=== PATIENT | female | born 1995 | race Caucasian/White ===

== ENCOUNTER 2018-11-08 19:53 | Inpatient (IN) | payer BC ==
[~2018-11-08] VITALS: Ht 165.1 cm; Wt 117.1 kg
[2018-11-08 20:02] VITALS: Ht 165.1 cm; Wt 117.1 kg
--- NOTE | 2018-11-08 20:28 | NUR ---
PT CAME TO ED FOR TAKING HALF BOTTLE OF DEPAKOTE. PT STS SHE HAS HX OF BIPOLAR. PT STS SHE HAS BEEN ADMITTED TO [facility] SEVERAL TIMES. PT STS SHE STARTED FEELING SAD 2 WEEKS AGO. PT STS SHE HAS A HX OF CUTTING HERSELF. PT STS SHE IS ABLE TO TALK TO HER MOTHER BUT SOMETIMES SHE KEEPS THINGS BOTTLED UP. PT DENIES SI/HI AT THIS TIME. PT STS SHE DOES NOT HAVE ACTIVE PLAN. MADE VERBAL AGREEMENT THAT PT WILL NOT TRY TO HURT HERSELF WHILE HERE. REQUESTED THAT PT REMOVE ALL PERSONAL BELONGS AND CLOTHES. PT VERBALIZED UNDERSTANDING. PT BELONGINGS PLACED IN RADIO ROOM. MOTHER AT BEDSIDE. PT IS CURRENTLY CRYING. PT MEDICATED BY ANA MITCHELL SEE EMAR FOR DETAILS. PT IN SITE OF NURSES STATION. WILL CONTINUE TO MONITOR.
--- NOTE | 2018-11-08 20:33 | NUR ---
EMT AT BEDSIDE FOR EKG
--- NOTE | 2018-11-08 20:46 | NUR ---
CALLED POISON CONTROL. STS THAT N/V IS COMMON BUT THERE ARE IS A PROBLEM W/SEIZURES AND ALOC. REQUESTS AMMONA, TYLENOL LEVEL, LIVER LEVELS AND MEDICATION LEVEL. REQUEST TO REPEAT LEVELS IN THE NEXT 4 HOURS. ALSO MENTIONED THAT EKG CHANGES CAN HAPPEN. SPOKE W/MAHESH.
[2018-11-08 20:50] LABS: BASOPHIL % 0.9 % (0-2); PLATELET COUNT 351 x10^3mcL (130-400); RED CELL DISTRIBUTION WIDTH 12.8 % (11.5-14.5)
--- NOTE | 2018-11-08 20:57 | NUR ---
PT STS AT THIS TIME SHE IS UNABLE TO URINATE
[2018-11-08 21:08] LABS: CALCIUM 8.8 mg/dL (8.5-10.1); CARBON DIOXIDE 23.8 mmol/L (21-32); CHLORIDE SERUM 108 mmol/L (98-107); CREATININE SERUM 0.8 mg/dL (0.6-1.0); GFR1 > 60 mL/min; GLUCOSE SERUM 101 mg/dL (74-106); SODIUM SERUM 143 mmol/L (136-145)
[2018-11-08 21:12] LABS: ALBUMIN 3.7 g/dL (3.4-5.0); ALKALINE PHOSPHATASE 72 U/L (46-116); ALT/SGPT 18 U/L (14-59); AST/SGOT 14 U/L (15-37); BILIRUBIN TOTAL 0.32 mg/dL (0.20-1.00)
--- NOTE | 2018-11-08 21:34 | NUR ---
PT MOVED FROM ER BED 1 TO BED 7. REPORT RECEIVED FROM DAPHNIE PEREZ TO ASSUME PT CARE. PT RESTING IN A POSITION OF COMFORT, AOX4, RESP EVEN AND UNLABORED, NO ACUTE DISTRESS NOTED. PT ON FULL CM IN VIEW OF NURSE'S STATION.
[2018-11-08 22:31] LABS: microscopic required? NO
[2018-11-08 22:48] LABS: UA SPECIFIC GRAVITY >=1.030 (1.005-1.035)
[2018-11-08 22:49] LABS: urine erythrocyte NEGATIVE (NEGATIVE)
[2018-11-08 22:52] LABS: AMPHETAMINE QUAL UR NONE DETECTED (See below)
--- NOTE | 2018-11-08 23:58 | NUR ---
GAVE REPORT TO ADNREW WITH POISON CONTROL. PER ADNREW REPEAT VALPORIC ACID LEVELS EVERY 3-4 HRS UNTIL A DECREASED IN PTS VALPORIC ACID IS NOTED. MD CHAUDHARY MADE AWARE.
--- NOTE | 2018-11-09 00:47 | NUR ---
PT RESTING IN A POSITION OF COMFORT AT THIS TIME. AOX4, RESP EVEN AND UNLABORED, NO ACUTE DISTRESS NOTED. PT REMAINS ON MONITOR IN VIEW OF STATION.
--- NOTE | 2018-11-09 02:48 | NUR ---
PT RESTING COMFORTABLY AT THIS TIME. WAKES EASILY TO VERBAL AND TACTILE STIMULI. ANSWERS ALL QUESTIONS APPROPRIATELY AND REMAINS ON FULL CM.
--- NOTE | 2018-11-09 04:01 | NUR ---
PT RESTING IN A POSITION OF COMFORT WITH EYES CLOSED, RESP EVEN AND UNLABORED, NO ACUTE DISTRESS NOTED.
--- NOTE | 2018-11-09 04:42 | NUR ---
SPOKE WITH SUKHI FROM POISION CONTROL REGARDING "GASTRIC LAVAGE" ORDER PLACED BY DR LUDWIG. PER CONTSTATINE, HIS RECOMMENDATION IS WHOLE BOWEL IRRIGATION WITH GO LYTELY 1-2L PER HR UNTIL VALPROIC ACID LEVEL DROPS OR UNTIL STOOL IS CLEAR IRRIGATION SHOULD BE PERFORMED THROUGH AN NG TUBE. DR LUDWIG PAGED TO DISCUSS ORDER.
--- NOTE | 2018-11-09 04:57 | NUR ---
PAGED DR LUDWIG FOR ORDER CLARIFICATION.
--- NOTE | 2018-11-09 04:58 | NUR ---
DR LUDWIG TO CHANGE ORDER TO MOVIPREP FOR WHOLE BOWEL IRRIGATION.
[2018-11-09 05:23] LABS: BASOPHIL % 1.3 % (0-2); PLATELET COUNT 327 x10^3mcL (130-400); RED CELL DISTRIBUTION WIDTH 12.9 % (11.5-14.5)
[2018-11-09 05:44] LABS: CALCIUM 7.9 mg/dL (8.5-10.1); CARBON DIOXIDE 24.8 mmol/L (21-32); CHLORIDE SERUM 110 mmol/L (98-107); CREATININE SERUM 0.8 mg/dL (0.6-1.0); GFR1 > 60 mL/min; GLUCOSE SERUM 92 mg/dL (74-106); SODIUM SERUM 145 mmol/L (136-145)
--- NOTE | 2018-11-09 06:00 | NUR ---
NG TUBE PLACED BY MYSELF AT THIS TIME, PT TOLERATED WELL HOWEVER, MILD NOSE BLEEDING NOTED.
[2018-11-09 06:02] LABS: MAGNESIUM 1.7 mg/dL (1.8-2.4); PHOSPHOROUS 4.4 mg/dL (2.5-4.9)
--- NOTE | 2018-11-09 06:26 | NUR ---
NG TUBE PLACEMENT VERIFIED BY ER MD ESQUIVEL. MOVIPREP INFUSION INITATED AT A RATE OF 400ML/HR. EDUCATED PT ON MEDICATION ADMINISTRATION. PT VERBALIZED UNDERSTANDING.
--- NOTE | 2018-11-09 06:33 | NUR ---
PT STATES THAT SHE IS FEELING SUICIDAL AGAIN THIS MORNING, PT STATES THAT SHE WILL ATTEMPT SUICIDE BY OVERDOSING AGAIN. PT IN VIEW OF NURSE'S STATION FOR SAFETY.
--- NOTE | 2018-11-09 06:36 | NUR ---
MOVIPREP INFUSION HELD FOR EPISODE OF VOMITING.
--- NOTE | 2018-11-09 06:39 | NUR ---
PT MEDICATED WITH PRN ZOFRAN FOR VOMITING. SEE EMAR FOR RECORD.
--- NOTE | 2018-11-09 06:44 | NUR ---
MOVIPREP REINITIATED AT THIS TIME. PT RESTING COMFORTABLY WATCHING TV AT THIS TIME. AOX4, RESP EVEN AND UNLABORED, NO ACUTE DISTRESS NOTED.
--- NOTE | 2018-11-09 07:30 | NUR ---
AWAKE ALERT OREINTED. NO COMPLAINTS, SKIN WARM AND DRY TO TOUCH ,RESP. EASY BREATH SOUNDS CLEAR, ABDOMEN OBESE SOFT ACTIVE BOWEL SOUNDS,MOVIPREP IN PROGRESS AT 400 CC/HR VIA NGTUBE,COOPERATIVE,STATES STILL HAVING SUICIDAL IDEATION,IV IN PROGRESS AT 125CC/HR,CONTINUOUS ABSORPTION PROCESS OPERATOR I SR NO ECTOPY NOTED WAITING ADMISSION, WILL CONTINUE TO MONITOR
--- NOTE | 2018-11-09 08:00 | NUR ---
NGTUBE MOVIPREP CHANGED TO 1000CC/HR.HAD LOOSE BLACKISH CHARCHOOL COLORED BOWEL MOVEMENT
--- NOTE | 2018-11-09 10:32 | NUR ---
HAD 3 WATERY LARGE BOWEL MOVEMENTS, PER MATTIE FROM POISON CONTROL IF VALPROIC LEVEL BELOW 114 STOP THE ELECTROLYTES LEVAGE AND SHE IS CLEAR,NO MORE VALPROIC ACID CHECKING
--- NOTE | 2018-11-09 11:17 | NUR ---
RECEIVED APTEINT FROM ER. ALERT/ORIENTED X4; CLEAR SPEECH. TELE#29 APPLIED, NSR; HR = 67; NO RESP DISTRESS ON RA. O2 SAT 99% ON RA. BRAETHING SOUND CLEAR RHYS. PATIENT STATED SHE TOOK DEPAKOTE 500MG X 30 TABS AND XANAX 10 TAB AMD "METH" WITH 1/2 L VODKA. NG TUBE INSERTED IN ER. GASTRIC LAVAGE GIVEN IN ER. PATIENT HAD YELLOW WATERY BM X4 IN ER. NGT VIA L NARES IN PLACE. DENIED PAIN. IVF OF NS 100CC/HR CONTIUE. DENIED PAIN. VOID VIA BRP; GAIT STEADY. 3 KNIFE CUTTING SCAR TO LT FOREARM FOR HX OF SUICIDAL ATTEMPTION. NO OPENED WOUND SEEN. FATHER AT BED SIDE NOW. 1 TO 1 SITTER PER ORDER.
[2018-11-09 11:19] VITALS: BP 145/86
--- NOTE | 2018-11-09 13:00 | NUR ---
REPORTED TO DR. GRANT WITH PATIENT'S VALPORIC ACID LEVEL 97.4; WITH NORMAL TREATMENT RANGE. ORDER OF D/C NGT CARRIED OUT. PATIENT CALM NOW. SEIZURE PRECAUTION IN PLACE.
[2018-11-09 13:33] VITALS: BP 150/91
--- NOTE | 2018-11-09 15:56 | NUR ---
MAGNESSIUM LEVEL 1.7; MAG RIDER 2GM IV GIVEN. PATIENT WAS SLEEPING NOW.
--- NOTE | 2018-11-09 16:45 | NUR ---
RECEIVED PHONE CALL FROM [facility]. TALKED TO [facility]. GAVE V/S, VALPROIC ACID LEVEL, PATIENT HAD YELLOW WATERY BM X6, NGT D/C'D, STARTED REGULAR DIET AND SITTER AT BED SIDE. [facility], CASE CLOSED NOW.
[2018-11-09 17:41] VITALS: BP 137/75
--- NOTE | 2018-11-09 18:58 | NUR ---
ON REGULAR DIET. POOR APPETITE. TOLERATED JUICE. NO N/V. DENIED PAIN. HAD WATER BM AND VOID VIA BRP. IVF OF NS 100CC/HR. SITTER AT BED SIDE. ENDORSED CARE TO [facility] NURSE.
--- NOTE | 2018-11-09 19:20 | NUR ---
RECEIVED PT IN BED ASLEEP BUT EASILY AROUSABLE AND ORIENTED X4. NO C/O HEADACHE AND DIZZINESS. NO SOB NOTED ON ROOM AIR. PT W/ NO C/O HALLUCINATIONS OR DELUSION. NO SUICIDAL IDEATION AT THIS TIME. SITTER AT BEDSIDE. W/ IVF NS AT 100 CC/HR VIA LTAC. CALL LIGHT W/IN REACH.
[2018-11-09 20:53] VITALS: BP 113/62
--- NOTE | 2018-11-10 02:25 | NUR ---
PT ASLEEP BUT EASILY AROUSABLE. NO C/O DISCOMFORT. SITTER AT BEDSIDE.
--- NOTE | 2018-11-10 05:15 | NUR ---
PT SLEPT THROUGH THE NIGHT. SHE WAS CALM AND COOPERATIVE W/ CARE. SHE DID NOT VERBALIZE SUICIDAL IDEATION. NO HALLUCINATIONS OR DELUSIONS. IVF NS INFUSING WELL AT 100 CC/HR . ALL NEEDS ATTENDED TO. SITTER REMAINS AT BEDSIDE.
[2018-11-10 06:18] VITALS: BP 120/70
[2018-11-10 06:42] LABS: ALKALINE PHOSPHATASE 63 U/L (46-116); ALT/SGPT 11 U/L (14-59); AST/SGOT 11 U/L (15-37); CALCIUM 7.6 mg/dL (8.5-10.1); CARBON DIOXIDE 22.7 mmol/L (21-32); CHLORIDE SERUM 109 mmol/L (98-107); CREATININE SERUM 0.6 mg/dL (0.6-1.0); GFR1 > 60 mL/min; GLUCOSE SERUM 87 mg/dL (74-106); MAGNESIUM 2.2 mg/dL (1.8-2.4); POTASSIUM SERUM 3.5 mmol/L (3.5-5.1); SODIUM SERUM 142 mmol/L (136-145); TOTAL PROTEIN, SERUM 6.2 g/dL (6.4-8.2)
[2018-11-10 06:57] LABS: ALBUMIN 2.8 g/dL (3.4-5.0)
--- NOTE | 2018-11-10 07:35 | NUR ---
RECEIVED PATIENT RESTING IN BED, NO ACUTE DISTRESS NOTED. PATIENT A/O X4, SEIZURE PRECAUTIONS IN PLACE. PATIENT C/O PREVIOUS STOOL BEING LOOSE. NO WEAKNESS NOTED, PATIENT AMBULATORY. SKIN INTACT. DENIES PAIN. NS IV INFUSING TO LAC AT 100ML/HR, IV SITE CDI, NO S/S OF INFILTRATION. CALL LIGHT WITHIN REACH, BED IN LOW POSITION, WILL CONTINUE TO MONITOR.
[2018-11-10 10:04] VITALS: BP 119/70
--- NOTE | 2018-11-10 10:15 | NUR ---
PATIENT WAS C/O HEADACHE, MEDICATED PATIENT WITH TYLENOL (SEE EMAR). WILL CONTINUE TO MONITOR PATIENT. CALL LIGHT WITHIN REACH, BED IN LOW POSITION. SITTER AT BEDSIDE FOR SEFTY PRECAUTION.
[2018-11-10 13:00] VITALS: BP 131/88
--- NOTE | 2018-11-10 15:00 | NUR ---
PATIENT WAS C/O OF A HEADACHE, MEDICATED PATIENT WITH TYLENOL PER PROTOCOL (SEE EMAR). REDUCED LIGHT FOR COMFORT. FAMILY AT BEDSIDE. CALL LIGHT WITHIN REACH, WILL CONTINUE TO MONITOR.
[2018-11-10 17:26] VITALS: BP 117/62
--- NOTE | 2018-11-10 17:30 | NUR ---
PATIENT RESTING IN BED, NO ACUTE DISTRESS NOTED. PATIENT DENIES PAIN. NO ACUTE CHANGES NOTED THROUGH OUT SHIFT, PATIENT STABLE. TELE MONITOR IN PLACE. CALL LIGHT WITHIN REACH, WILL CONTINUE TO MONITOR.
--- NOTE | 2018-11-10 19:15 | NUR ---
RECEIVED PT IN BED AWAKE AND TALKING TO PARENTS AT BEDSIDE. PT APPEARS TEARFUL. ON TELE #29 AND SHOWS SB. SHE HAS NO C/O PAIN OR DISCOMFORT AT THIS TIME. W/ IVF NS AT 100 CC/HR VIA LTAC. CALL LIGHT W/IN REACH. SITTER AT BEDSIDE.
[2018-11-10 20:00] VITALS: BP 150/85
--- NOTE | 2018-11-10 20:30 | NUR ---
PT SEEN BY DR. COWAN.
--- NOTE | 2018-11-10 22:35 | NUR ---
PT CALM AND WATCHING TV AT THIS TIME.
--- NOTE | 2018-11-11 05:07 | NUR ---
PT IS ON HER LT SIDE AND APPEARS TO BE SLEEPING COMFORTABLY. BREATHING IS EVEN AND UNLABORED. PT IS WATCHED CLOSELY PT STILL HAS THOUGHTS OF HURTING HERSELF. PT REMAINED CALM AND COOPERATIVE W/ CARE. W/ IVF NS INFUSING WELL VIA LTAC. ALL NEEDS ATTENDED TO. SITTER AT BEDSIDE.
[2018-11-11 05:59] VITALS: BP 129/82
--- NOTE | 2018-11-11 08:04 | NUR ---
RECEIVED PATIENT FROM ANA LLOYD. PATIENT LAYING IN BED, STATES SHE STILL HAS THOUGHTS ABOUT HURTING HERSELF. DENIES WANTING TO HARM OTHERS. WILL CONTINUE TO WATCH PATIENT, PATIENT HAS SITTER AT BEDSIDE. CALL LIGHT IN REACH AT THIS TIME.
--- NOTE | 2018-11-11 09:12 | NUR ---
[facility] received packet via fax. Will begin looking for placement. Will contact with any updates.
--- NOTE | 2018-11-11 09:22 | NUR ---
Contacted the following facilities regarding placement: [facility]: states they may have a bed for pt. Packet faxed for review. [facility]: State they have multiple openings, will review packet. Packet faxed. Will continue to contact facilities. Will contact with placment updates.
--- NOTE | 2018-11-11 10:41 | NUR ---
NOTIFIED BY DINAH KERN THAT PATIENT CAN BE ACCEPTED FOR PLACEMENT. PATIENT AND FATHER EXPRESSED THAT THEY WOULD LIKE PATIENT TO BE PLACED AT [facility] AND THAT FATHER WOULD LIKE TO SELF TRANSPORT WO AMBULANCE. NOTIFIED DR STEELE ABOUT CONCERNS AND PLACEMENT. ALSO NOTIFIED KIM DELA CRUZ ABOUT PATIENT CONCERNS. KIM DELA CRUZ ARRIVED TO FLOOR TO SPEAK WITH FATHER, DURING THIS CONVERSATION, [facility] DANIEL CALLED AND ALSO ABLE TO ACCEPT PATIENT. SW, PATIENT, FATHER, AND DR BAGLEY ALL MADE AWARE. WILL AWAIT ARRANGEMENTS WITH KIM AND INSIDE SALES ACCOUNT REPRESENTATIVE FOR FURTHER DETAILS. CALL LIGHT IN REACH, SITTER AT BEDSIDE.
[2018-11-11 11:11] VITALS: BP 129/82
--- NOTE | 2018-11-11 11:25 | NUR ---
PATIENT READY FOR 1130 PICKUP TO TRANSFER TO [facility]. REPORT ALREADY GIVEN TO DANIEL. SIGNATURES OBTAINED FOR TRANSFER AND TRANSFER PACKET. IV ACCESS REMOVED AND INTACT, MANAGER GARAGE REMOVED AND RETURNED TO [facility]. NOW AWAITING TRANSPORT VIA [facility]. CALL LIGHT IN REACH, SITTER AT BEDSIDE.
--- NOTE | 2018-11-11 12:17 | NUR ---
[facility] IN TO TRANSPORT PATIENT. PATIENT OFF FLOOR VIA [facility] WITH BELONGINGS. TRANSFER PACKET GIVEN TO [facility].
== END 2018-11-11 12:05 | DRG 918 ==
LOC: ED 19:53 → DU 11-09 01:45 → MU 11-09 01:45 → DU 11-09 11:09
PROVIDERS: Specialist; ADMIT Internal Medicine
DX: T42.6X2A Poisoning by other antiepileptic and sedative-hypnotic drugs, intentional self-harm, initial encounter (principal); F31.9 Bipolar disorder, unspecified; F41.9 Anxiety disorder, unspecified; F17.210 Nicotine dependence, cigarettes, uncomplicated; Y92.89 Other specified places as the place of occurrence of the external cause; Z72.89 Other problems related to lifestyle; Z79.899 Other long term (current) drug therapy
CPT/HCPCS: G0378; G0480; J2405; J3475; J7030; Q0092

== ENCOUNTER 2018-11-13 22:31 | Emergency (ER) | payer BC ==
[~2018-11-13] VITALS: Ht 165.1 cm; Wt 120.2 kg
[2018-11-13 23:08] VITALS: Ht 165.1 cm; Wt 120.2 kg
[2018-11-13 23:19] LABS: BASOPHIL % 0.8 % (0-2); PLATELET COUNT 340 x10^3mcL (130-400); RED CELL DISTRIBUTION WIDTH 12.7 % (11.5-14.5)
[2018-11-13 23:36] LABS: CALCIUM 8.4 mg/dL (8.5-10.1); CARBON DIOXIDE 27.5 mmol/L (21-32); CHLORIDE SERUM 101 mmol/L (98-107); CREATININE SERUM 0.9 mg/dL (0.6-1.0); GFR1 > 60 mL/min; GLUCOSE SERUM 114 mg/dL (74-106); POTASSIUM SERUM 3.3 mmol/L (3.5-5.1); SODIUM SERUM 139 mmol/L (136-145)
[2018-11-14 00:20] LABS: ALBUMIN 3.8 g/dL (3.4-5.0); ALT/SGPT 30 U/L (14-59); AST/SGOT 19 U/L (15-37); BILIRUBIN TOTAL 0.41 mg/dL (0.20-1.00); TOTAL PROTEIN, SERUM 7.5 g/dL (6.4-8.2)
[2018-11-14 00:21] LABS: ALKALINE PHOSPHATASE 68 U/L (46-116); AMYLASE 23 U/L (25-115); CHOLESTEROL 161 mg/dL (<200); HDL CHOLESTEROL 37 mg/dL (40-60); LIPASE 131 IU/L (73-393); T4(THYROXINE) 10.6 ug/dL (4.7-13.3)
[2018-11-14 01:10] LABS: UA SPECIFIC GRAVITY <=1.005 (1.005-1.035); microscopic required? YES; urine erythrocyte TRACE (NEGATIVE)
[2018-11-14 01:47] LABS: AMPHETAMINE QUAL UR NONE DETECTED (See below)
[2018-11-14 03:56] VITALS: BP 103/66
== END 2018-11-14 03:58 | disposition home or self-care (01) ==
LOC: ED 22:31
PROVIDERS: Emergency Medicine
DX: R07.89 Other chest pain (principal); R00.2 Palpitations; E87.6 Hypokalemia; F31.9 Bipolar disorder, unspecified; F17.210 Nicotine dependence, cigarettes, uncomplicated; F12.10 Cannabis abuse, uncomplicated; E66.9 Obesity, unspecified; Z68.41 Body mass index [BMI] 40.0-44.9, adult
CPT/HCPCS: 36415; 83880; 85378

== ENCOUNTER 2019-12-22 17:09 | Emergency (ER) | payer OTHER ==
[~2019-12-22] VITALS: Ht 165.1 cm; Wt 108.9 kg
[2019-12-22 17:16] VITALS: Ht 165.1 cm; Wt 108.9 kg
[2019-12-22 18:20] LABS: PLATELET COUNT 428 x10^3mcL (130-400); RED CELL DISTRIBUTION WIDTH 13.1 % (11.5-14.5)
[2019-12-22 18:21] LABS: CALCIUM 8.8 mg/dL (8.5-10.1); CHLORIDE SERUM 105 mmol/L (98-107); CREATININE SERUM 0.7 mg/dL (0.6-1.0); GFR1 > 60 mL/min; GLUCOSE SERUM 108 mg/dL (74-106); POTASSIUM SERUM 3.2 mmol/L (3.5-5.1); SODIUM SERUM 141 mmol/L (136-145)
[2019-12-22 18:25] LABS: ALBUMIN 4.1 g/dL (3.4-5.0); ALKALINE PHOSPHATASE 76 U/L (46-116); ALT/SGPT 28 U/L (14-59); AST/SGOT 17 U/L (15-37); BILIRUBIN TOTAL 0.53 mg/dL (0.20-1.00); LIPASE 105 IU/L (73-393); TOTAL PROTEIN, SERUM 7.6 g/dL (6.4-8.2)
[2019-12-22 20:00] VITALS: BP 150/92
== END 2019-12-22 20:00 | disposition home or self-care (01) ==
LOC: ED 17:09
PROVIDERS: Emergency Medicine
DX: R10.12 Left upper quadrant pain (principal); F31.9 Bipolar disorder, unspecified

== ENCOUNTER 2019-12-25 07:54 | Emergency (ER) | payer BC, OTHER ==
[2019-12-25 08:02] VITALS: BP 146/83
== END 2019-12-25 09:33 | disposition home or self-care (01) ==
LOC: ED 07:54
DX: H00.034 Abscess of left upper eyelid (principal); K29.70 Gastritis, unspecified, without bleeding
CPT/HCPCS: J0696; J2405; J7060

== ENCOUNTER 2019-12-31 12:45 | Emergency (ER) | payer BC, OTHER ==
[~2019-12-31] VITALS: Ht 165.1 cm; Wt 108.9 kg
[2019-12-31 13:19] VITALS: Ht 165.1 cm; Wt 108.9 kg
[2019-12-31 14:23] LABS: BASOPHIL % 0.5 % (0-2); PLATELET COUNT 382 x10^3mcL (130-400); RED CELL DISTRIBUTION WIDTH 12.7 % (11.5-14.5)
[2019-12-31 14:41] LABS: CALCIUM 9.2 mg/dL (8.5-10.1); CARBON DIOXIDE 23.5 mmol/L (21-32); CHLORIDE SERUM 102 mmol/L (98-107); CREATININE SERUM 0.7 mg/dL (0.6-1.0); GFR1 > 60 mL/min; GLUCOSE SERUM 104 mg/dL (74-106); POTASSIUM SERUM 3.8 mmol/L (3.5-5.1); SODIUM SERUM 138 mmol/L (136-145)
[2019-12-31 14:46] LABS: ALBUMIN 4.4 g/dL (3.4-5.0); ALKALINE PHOSPHATASE 76 U/L (46-116); ALT/SGPT 32 U/L (14-59); AST/SGOT 23 U/L (15-37); BILIRUBIN TOTAL 1.1 mg/dL (0.20-1.00); LIPASE 116 IU/L (73-393)
[2019-12-31 18:57] VITALS: BP 135/85
== END 2019-12-31 18:58 | disposition home or self-care (01) ==
LOC: ED 12:45
PROVIDERS: Emergency Medicine
DX: K21.9 Gastro-esophageal reflux disease without esophagitis (principal); R07.89 Other chest pain; F31.9 Bipolar disorder, unspecified
CPT/HCPCS: C9113; J1200; J2765; J7030